=== PATIENT | male | born 1975 | race Caucasian/White ===

== ENCOUNTER 2018-06-10 09:50 | Emergency (ER) | payer BC ==
[~2018-06-10] VITALS: Ht 182.9 cm; Wt 88.6 kg
[2018-06-10 09:55] VITALS: Ht 182.9 cm; Wt 88.6 kg
[2018-06-10] MEDS ORDERED: BUPROPION HCL150 M1 PO (09:57)
[2018-06-10] MEDS ORDERED: CRESTOR20 MG (09:57)
[2018-06-10] MEDS ORDERED: VITAMIN D2000 UNIT PO (09:57)
[2018-06-10 10:25] LABS: BASOPHILS 0.1 % (0-2); EOSINOPHILS 0.9 % (0-7); HEMATOCRIT 44.1 % (42.0-54.0); HEMOGLOBIN 15.3 g/dL (13.5-17.5); IMMATURE GRANULOCYTES 0.1 % (0-5); LYMPHOCYTES 34.6 % (15-50); MCH 29.2 pg (26.0-34.0); MCHC 34.7 g/dL (31.0-37.0); MCV 84.2 fL (80.0-100.0); MEAN PLATELET VOLUME 11.6 fL (7.4-10.4); MONOCYTES 6.6 % (2-11); NEUTROPHILS 57.7 % (40-80); PLATELET COUNT 151 10x3/uL (130-400); RBC 5.24 10x6/uL (4.20-6.10); WBC 6.8 10x3/uL (4.8-10.8)
[2018-06-10 10:29] LABS: APPEARANCE CLEAR (CLEAR); BILIRUBIN NEGATIVE (NEGATIVE); COLOR STRAW (YELLOW); GLUCOSE NEGATIVE (NEGATIVE); KETONE NEGATIVE (NEGATIVE); NITRITE NEGATIVE (NEGATIVE); PROTEIN NEGATIVE (NEGATIVE); RED CELLS - URINE OCC /hpf (0-5); UROBILINOGEN NORMAL (NORMAL); WHITE CELLS - URINE NSEEN /hpf (0-5)
[2018-06-10 10:39] LABS: ALBUMIN 4.4 g/dL (3.4-5.0); ALKALINE PHOSPHATASE 74 U/L (46-116); ALT (SGPT) 16 U/L (10-68); BILIRUBIN - TOTAL 0.53 mg/dL (0.2-1.3); CALC OSMOLALITY 280 mosm/kg (275-300); CALCIUM 9.5 mg/dL (8.5-10.1); CARBON DIOXIDE 28.1 mmol/L (21.0-32.0); CHLORIDE - SERUM 104 mmol/L (98-107); GLUCOSE 98 mg/dL (74-106); LIPASE 189 U/L (73-393); POTASSIUM - SERUM 3.8 mmol/L (3.5-5.1); PROTEIN - SERUM 8.1 g/dL (6.4-8.2); SODIUM 141 mmol/L (136-145); UREA NITROGEN 12 mg/dL (7-18); eGFR NON AFRICAN AMERICAN 88 mL/min (90-120)
[2018-06-10] MEDS ORDERED: FLOMAX0.4 MG PO (12:06)
[2018-06-10] MEDS ORDERED: TYLENOL W/CODEI1 TAB PO (12:06)
[2018-06-10 12:31] VITALS: BP 133/86
== END 2018-06-10 12:33 | disposition home or self-care (01) ==
LOC: D.ER 09:50
PROVIDERS: Family Medicine
DX: N20.1 Calculus of ureter (principal)